=== PATIENT | female | born 1950 | race Caucasian/White ===

== ENCOUNTER 2021-07-24 08:32 | Day surgery (SDC) | payer MEDICARE ==
[~2021-07-24] VITALS: Ht 154.9 cm; Wt 52.7 kg
[~2021-07-24 08:32] MED LIST: ACET500 PO; AMOX250; ANGELIQ 0.25 M1 EACH PO; Budeprion Sr150 MG PO; CONESTTC VAG; Pepto-Bismol262 M1 PO; Prilosec Otc20 MG; ROBITUSSIN COU118 ML PO; ZYRTEC10 M1 PO
[2021-07-24] MEDS ORDERED: AMOX250 PO (08:55)
--- NOTE | 2021-07-24 08:58 | NUR ---
07/24/21 0890 Leeanna Hodges CALL LIGHT WITHIN REACH. PLESUZAN WITH MADINA IN AT [phone]
== END 2021-07-24 10:25 | disposition home or self-care (01) ==
LOC: ORSCSDS 08:32
PROVIDERS: Ophthalmology
PROC: 08RK3JZ Replacement of Left Lens with Synthetic Substitute, Percutaneous Approach (ICD-10-PCS; principal; 2021-07-24 09:45)
DX: H25.12 Age-related nuclear cataract, left eye (principal); Z79.899 Other long term (current) drug therapy
CPT/HCPCS: J2001; J2250; J3010; J3301; J7040; V2632

== ENCOUNTER → 2024-03-30 | Outpatient (CLI) | payer MEDICARE ==
[~2024-03-30] MED LIST changes: +AMOX250 PO; +ESTRADIOL1 MG PO; +MEDR2.5 PO
[2024-03-30 18:57] LABS: BASOPHILS ABSOLUTE AUTO 0.03 K/mm3 (0.00-0.23); BASOPHILS PERCENT AUTO 1 % (0-2); EOSINOPHILS ABSOLUTE AUTO 0.06 K/mm3 (0.00-0.68); EOSINOPHILS PERCENT AUTO 1 % (0-6); Hematocrit 39.8 % (33.0-51.0); Hemoglobin 13.2 g/dL (11.5-16.0); IMMATURE GRAN ABSOLUTE AUTO 0.01 K/mm3 (0.00-0.10); IMMATURE GRAN PERCENT AUTO 0 % (0-1); LYMPHOCYTES ABSOLUTE AUTO 1.69 K/mm3 (0.84-5.20); LYMPHOCYTES PERCENT AUTO 28 % (21-46); MONOCYTES ABSOLUTE AUTO 0.51 K/mm3 (0.16-1.47); MONOCYTES PERCENT AUTO 8 % (4-13); Mean Corpuscular HGB Conc 33.2 g/dL (31.5-36.5); Mean Corpuscular Volume 93 fL (80-100); Mean Platelet Volume 10.1 fL (9.1-12.4); NEUTROPHILS ABSOLUTE AUTO 3.74 K/mm3 (1.96-9.15); NEUTROPHILS PERCENT AUTO 62 % (41-73); Platelet Count 277 K/mm3 (150-400); RDW Coefficient Variation 12.3 % (11.7-14.2); RDW Standard Deviation 42.5 fL (35.1-46.3); Red Blood Cell Count 4.26 M/mm3 (3.80-5.20); White Blood Cell Count 6.04 K/mm3 (4.00-11.30)
[2024-03-30 19:04] LABS: Albumin, Blood 4.1 g/dL (3.4-5.0); Albumin/Globulin Ratio 1.5 (0.8-1.8); Bilirubin, Total 0.3 mg/dL (0.1-1.0); Bun/Creatinine Ratio 17.5 (12.0-20.0); Calcium, Blood 9.2 mg/dL (8.5-10.1); Creatinine, Blood 0.74 mg/dL (0.40-1.00); Globulin, Blood 2.8 g/dL (2.2-4.0); Potassium, Blood 3.9 mmol/L (3.5-5.5); Total Protein, Blood 6.9 g/dL (6.4-8.2)
[2024-04-04 05:55] LABS: ANTINUCLEAR AB (ANA),HEP-2,IGG <1:80 (<1:80)
== END | disposition home or self-care (01) ==
LOC: LAB 17:53 → LAB SHORT 17:53
PROVIDERS: Hospitalist
DX: M81.0 Age-related osteoporosis without current pathological fracture (principal); M25.50 Pain in unspecified joint; F33.0 Major depressive disorder, recurrent, mild
CPT/HCPCS: 80053; 82306; 83970; 84443; 85025; 85651; 86039; 86430

== ENCOUNTER 2025-09-18 09:22 | Day surgery (SDC) | payer MEDICARE ==
[~2025-09-18] VITALS: Ht 154.9 cm; Wt 51.7 kg
[2025-09-18 11:45] VITALS: BP 113/59
== END 2025-09-18 11:42 | disposition home or self-care (01) ==
LOC: ORSCSDS 09:22
PROVIDERS: Internal Medicine Gastroenterology
PROC: 0DBC8ZX Excision of Ileocecal Valve, Via Natural or Artificial Opening Endoscopic, Diagnostic (ICD-10-PCS; principal; 2025-09-18 10:30)
PROC: 0DBK8ZX Excision of Ascending Colon, Via Natural or Artificial Opening Endoscopic, Diagnostic (ICD-10-PCS; principal; 2025-09-18 10:30)
DX: Z12.11 Encounter for screening for malignant neoplasm of colon (principal); D12.2 Benign neoplasm of ascending colon; Z86.0101 Personal history of adenomatous and serrated colon polyps; Z86.0102 Personal history of hyperplastic colon polyps; Z79.899 Other long term (current) drug therapy; K63.5 Polyp of colon
CPT/HCPCS: 88305; J2704; J7120